=== PATIENT | female | born 1985 | race Hispanic/Latino ===

== ENCOUNTER 2017-10-04 17:08 | Day surgery (SDC) | payer OTHER ==
[2017-10-04 17:56] VITALS: BMI 48.0
--- NOTE | 2017-10-04 18:31 | PDOC.LDHP ---
Labor and Delivery H&P Chief complaint: decreased movement HPI: 31 y/o at 35w3d, patient of Dr. Urbano, presents with decreased movement today. Denies VB, LOF, ctx, or other complaints. ROS neg for HEENT, cv, pulm, gi, gu, neuro, psych, skin, musculoskeletal or constitutional symptoms other than mentioned above. OB History Details: 5 prior term SVDs Current complications: none Past Medical History: Morbid obesity Hypothyroidism Current medications: pre- vitamins, other (synthroid) Previous surgical history: other (bartholin's gland cyst removed this ) Allergies/Adverse Reactions: Allergies Allergy/AdvReac Type Severity Reaction Status Date / Time No Known Allergies Allergy Unverified 10/04/17 17:43 Social history: none - Physical Exam Vital signs reviewed and normal: yes General: NAD, resting Lungs: nonlabored breathing Abdomen: gravid Extremeties: no edema FHT: category 1 (120s, mod variability, + accels, no decels) Priddy contractions every: none - Assessment 31 y/o at 35w3d with reactive NST. Has felt movement since arrival. - Plan -: D/c home with precautions. Advised to keep all appointments and continue daily activity counts. Dr. Pennington aware of patient visit.
== END 2017-10-04 18:35 | disposition home or self-care (01) ==
LOC: L&D/OP 17:08
PROVIDERS: ATTEND Obstetrics & Gynecology
DX: O36.8130 Decreased fetal movements, third trimester, not applicable or unspecified (principal); O99.283 Endocrine, nutritional and metabolic diseases complicating pregnancy, third trimester; E03.9 Hypothyroidism, unspecified; Z79.899 Other long term (current) drug therapy; O99.213 Obesity complicating pregnancy, third trimester; E66.01 Morbid (severe) obesity due to excess calories; Z68.42 Body mass index [BMI] 45.0-49.9, adult; Z3A.35 35 weeks gestation of pregnancy

== ENCOUNTER 2017-10-22 12:00 | Inpatient (IN) | payer OTHER ==
[2017-10-22] MEDS ORDERED: Penicillin G Potassium 5 MILL.UNITS VIAL ONE (12:33)
[2017-10-22] MEDS ORDERED: Penicillin G Potassium 5 MILL.UNITS in Sodium Chloride 0.9% 100 ML IVPB SCH (12:45)
[2017-10-22 12:58] VITALS: BMI 48.0
[2017-10-22] MEDS ORDERED: Lidocaine 1% (PF) 30 ML VIAL SC PRN (16:45)
[2017-10-22] MEDS ORDERED: LR / Pitocin 40 units/1000 ml 40 UNITS/1,000 ML BAG IV SCH (16:45)
[2017-10-22] MEDS: Penicillin G 2.5 MILL.units 2.5 MILL.UNITS in Premix Bag 1 BAG IVPB SCH ×3 (16:45→20:59)
[2017-10-22] MEDS ORDERED: LR 500 ML/Oxytocin 10 units 500 ML IV SCH ×2 (16:45)
[2017-10-22] MEDS ORDERED: Fentanyl 4 mcg/Marc 0.1% Cadd 100 ML ONE (17:19)
[2017-10-22 17:29] LABS: #Eosinphils 0.1 thou/uL (0.0-0.7); #Lymphocytes 1.3 thou/uL (1.20-3.40); #Monocytes 0.3 thou/uL (0.11-0.59); %Basophils 0.2 % (0.0-1.0); %Eosinophils 1.7 % (0.0-10.0); %Lymphocytes 18.9 % (21.0-51.0); %Monocytes 4.7 % (0.0-10.0); Hematocrit 36.5 % (36.0-47.0); Mean Platelet Volume 8.8 fL (7.4-10.4); Red Blood Cell (RBC) Count 4.04 mill/uL (4.20-5.40); White Blood Cell (WBC) Count 6.7 thou/uL (4.8-10.8)
[2017-10-22] MEDS ORDERED: Naloxone HCl 0.4 mg/ml Vial IVP PRN ×2 (19:09)
[2017-10-22] MEDS ORDERED: ePHEDrine/0.9% NaCl/PF SYRINGE 50 mg/10 ml SLOW IVP PRN (19:09)
[2017-10-22] MEDS ORDERED: Ondansetron HCl/PF 4 MG/2 ML Vial IVP PRN ×2 (19:09→23:30)
[2017-10-22] MEDS ORDERED: Eucerin (Mineral Oil/Petrolatum,White) 30 gm Jar TOP PRN (19:09)
[2017-10-22] MEDS ORDERED: Acetaminophen 325 MG TAB PO PRN (19:09)
[2017-10-22] MEDS ORDERED: diphenhydrAMINE 50 MG/ML VIAL IVP PRN (19:09)
[2017-10-22] MEDS ORDERED: Lactated Ringer's 500 ML IV PRN (19:09)
[2017-10-22] MEDS ORDERED: Promethazine HCl 25 MG/ML VIAL IM PRN ×2 (19:09→23:30)
[2017-10-22] MEDS ORDERED: Fentanyl 4mcg/Marcaine 0.1% Cassette 100 ML EPIDURAL SCH (19:15)
[2017-10-22] MEDS ORDERED: Communication Order-Pharmacy FS SCH (19:15)
[2017-10-22] MEDS ORDERED: Misoprostol 200 MCG TAB ONE (22:32)
[2017-10-22] MEDS ORDERED: Bisacodyl 10 MG SUPP PR PRN (23:24)
[2017-10-22] MEDS ORDERED: Milk Of Magnesia 30 ML UDCUP PO PRN (23:24)
[2017-10-22] MEDS ORDERED: Preparation H Ointment 28 GM TUBE PR PRN (23:30)
[2017-10-22] MEDS ORDERED: LR / Pitocin 40 units/1000 ml 1,000 ML IV SCH (23:30)
[2017-10-22] MEDS ORDERED: Benzocaine/Menthol 20-0.5% 60 ML CAN TOP PRN (23:30)
[2017-10-22] MEDS ORDERED: Lanolin Ointment 7 GM TUBE TOP PRN (23:30)
[2017-10-22] MEDS ORDERED: HYDROcodone/Acetaminophen 5/325 mg Tablet PO PRN ×2 (23:30)
[2017-10-22] MEDS ORDERED: diphenhydrAMINE 25 MG CAP PO PRN (23:30)
[2017-10-22] MEDS ORDERED: Adacel (T-DAP) 0.5 ML VIAL IM ONE (23:58)
--- NOTE | 2017-10-23 02:28 | OP ---
DATE OF PROCEDURE: 10/22/2017 PREOPERATIVE DIAGNOSES: 1. A 31-year-old G10, P 5-0-4-5, with history of 5 vaginal deliveries at term in active labor. 2. GBS positive. 3. Grand multiparity. 4. History of persistent upper respiratory infection during . POSTOPERATIVE DIAGNOSES: 1. A 31-year-old G10, P 5-0-4-5, with history of 5 vaginal deliveries at term in active labor. 2. GBS positive. 3. Grand multiparity. 4. History of persistent upper respiratory infection during . 5. Liveborn female infant with Apgars of 9 and 9 at 1 and 5 minutes respectively. CLINICAL HISTORY: This patient is a 31-year-old female, who called the office complaining t his morning of regular contractions that were painful and lots of pressure. She had been compliant w ith her care and seen throughout the entire . The only complication for the was t he history of tobacco use, persisting URI in the second and third trimester, as well as GBS positive status. The patient was evaluated and noted to be 4 cm dilated, 70% effaced, and -3 station. The pa tient previously had 3 cm, 2 days prior. Given her history of grand multiparity and GBS positive sta tus, the patient was sent over to the hospital for admission for active labor/post-potential augmenta tion of the labor. She was admitted and penicillin was started per protocol for group B strep prophy laxis and she was able to get her second dose in before an amniotomy was performed. The amniotomy no ivett clear fluid. The patient did progress, but she requested her epidural for maternal analgesia. O nce the epidural was placed, she was checked again and was noted to be the same as far as cervical di lation. A Pitocin was then started per protocol and the patient progressed to complete cervical dila tion plus +2 station. DETAILS OF PROCEDURE: With good maternal effort, the patient was able to push and bring the ve rtex to a position within the first contraction. The patient also delivered off of the firs t contraction, the head presented in the position and the anterior shoulder followed by the posterior shoulder while the remainder of the 's body was delivered spontaneously. The cord was doubly clamped and cut and the infant cried a vigorous cry. She was placed on the maternal abdomen and the nurse in attendance. Simulated and cleansed the baby of the amniotic fluid and vernix. The placenta was then delivered spontaneously intact with a 3-vessel cord and exploration of the vagina introitus and cervix noted no tears. The uterus was then massaged and noted at the fundus to be firm. Pitoci n was infused and the patient was put into the recovery position with the Mayes out. There were no o ther issues surrounding this delivery. Cord blood was obtained and sent off. The patient was able t o recover with her infant. Again, the was a liveborn female. Weight was not available at the time of this dictation. The Apgars were 9 and 9. SURGEON: Sadia Urbano M.D. ESTIMATED BLOOD LOSS: 200 mL. ANESTHESIA: Epidural. All needle, sponge, lap, and instrument counts were correct x2 at the end of the procedure.
[2017-10-23] MEDS: Lactated Ringer's 1,000 ML IV SCH ×3 (02:47→14:18)
[2017-10-23] MEDS: Penicillin G 2.5 MILL.units 2.5 MILL.UNITS in Premix Bag 1 BAG IVPB SCH ×4 (02:48→14:19)
[2017-10-23] MEDS: Ibuprofen 800 MG TAB PO SCH ×3 (06:14→22:06)
[2017-10-23] MEDS: Ferrous Sulfate 325 MG TAB PO SCH ×2 (08:52→18:12)
[2017-10-23] MEDS: Prenatal Vitamin 1 TAB PO SCH (09:19)
[2017-10-23] MEDS: Docusate (Surfak) 240 MG CAP PO SCH ×2 (09:19→22:06)
[2017-10-23] MEDS ORDERED: Bupivacaine/Epinephrine 0.25% 30 ML VIAL ONE (15:44)
[2017-10-24] MEDS: Ibuprofen 800 MG TAB PO SCH ×2 (05:44→13:53)
[2017-10-24] MEDS: Docusate (Surfak) 240 MG CAP PO SCH (08:48)
[2017-10-24] MEDS: Ferrous Sulfate 325 MG TAB PO SCH ×2 (08:48→17:11)
[2017-10-24] MEDS: Prenatal Vitamin 1 TAB PO SCH (08:48)
[2017-10-24 08:52] VITALS: BP 110/56; TEMP 98
== END 2017-10-24 18:10 | disposition home or self-care (01) | DRG 775 ==
LOC: L&D 12:00 → 3SW 10-23 01:40
PROVIDERS: ADMIT Obstetrics & Gynecology; ATTEND Obstetrics & Gynecology
PROC: 10E0XZZ Delivery of Products of Conception, External Approach (ICD-10-PCS; principal; 2017-10-22)
PROC: 10907ZC Drainage of Amniotic Fluid, Therapeutic from Products of Conception, Via Natural or Artificial Opening (ICD-10-PCS; 2017-10-22)
DX: O99.824 Streptococcus B carrier state complicating childbirth (principal); Z37.0 Single live birth; Z3A.38 38 weeks gestation of pregnancy
CPT/HCPCS: 85025; 86762; 86780; 86850; 86900; 86901; 87340; 87389; J2210; J2540; J7050; J7120

== ENCOUNTER 2019-10-18 11:34 | Inpatient (IN) | payer OTHER ==
[2019-10-18 12:08] VITALS: BMI 54.9
[2019-10-18] MEDS ORDERED: Promethazine HCl 25 MG/ML VIAL IM PRN ×2 (12:47→18:45)
[2019-10-18] MEDS ORDERED: hydrALAZINE 20 MG/ML VIAL SLOW IVP PRN (12:47)
[2019-10-18] MEDS ORDERED: Butorphanol Tartrate 1 MG/ML VIAL SLOW IVP PRN (12:47)
[2019-10-18] MEDS ORDERED: Ibuprofen 800 MG TAB PO PRN (12:47)
[2019-10-18] MEDS ORDERED: Ondansetron PF 4 MG/2 ML Vial IVP PRN ×2 (12:47→18:45)
[2019-10-18] MEDS ORDERED: Docusate 100 MG CAP PO PRN (12:47)
[2019-10-18] MEDS ORDERED: Lidocaine 1% (PF) 30 ML VIAL SC PRN (12:47)
[2019-10-18] MEDS ORDERED: NS / Oxytocin 40 units/1000ml 1,000 ML IV PRN (12:47)
[2019-10-18] MEDS ORDERED: HYDROcodone/Acetaminophen 5/325 mg Tablet PO PRN ×2 (12:47)
[2019-10-18 13:26] LABS: Mean Corpuscular HGB CONC 33.9 g/dL (32.0-36.0); Mean Corpuscular Hemoglobin 28.5 pg (27.0-31.0); Mean Corpuscular Volume 84.1 fL (78.0-98.0); Mean Platelet Volume 8.8 fL (7.4-10.4); Platelet Count 249 thou/uL (130-400); RBC Distribution Width 13.1 % (11.5-14.5); Red Blood Cell (RBC) Count 3.86 mill/uL (4.20-5.40); White Blood Cell (WBC) Count 8.3 thou/uL (4.8-10.8)
[2019-10-18 13:44] LABS: ALT (SGPT) 10 U/L (8-55); AST (SGOT) 12 U/L (5-34)
[2019-10-18 13:58] LABS: Syphilis Antibody Nonreactive (Nonreactive); Syphilis Antibody Index 0.04 S/CO (<1.00 Non-Reactive)
[2019-10-18 14:03] LABS: HBSAg Index 0.15 S/CO (0-0.99); Hep B Surf Ag Non-Reactive S/CO (NonReactive)
[2019-10-18] MEDS ORDERED: Bupivacaine 0.25% HCL 30 ML VIAL ONE (15:02)
[2019-10-18] MEDS ORDERED: Fentanyl 4 mcg/Bup 0.1% Cadd 100 ML ONE (17:42)
[2019-10-18] MEDS: Lactated Ringer's 1,000 ML IV SCH ×2 (18:15→22:30)
[2019-10-18] MEDS ORDERED: Lactated Ringer's 500 ML IV PRN (18:45)
[2019-10-18] MEDS ORDERED: Naloxone HCl 0.4 mg/ml Vial IVP PRN ×2 (18:45)
[2019-10-18] MEDS ORDERED: ePHEDrine/0.9% NaCl/PF SYRINGE 50 mg/10 ml SLOW IVP PRN (18:45)
[2019-10-18] MEDS ORDERED: Fentanyl 4 mcg/Bupivacaine 0.1% Cassette 100 ML EPIDURAL SCH (18:45)
[2019-10-18] MEDS ORDERED: Communication Order-Pharmacy FS SCH (18:45)
[2019-10-18] MEDS ORDERED: Acetaminophen 325 MG TAB PO PRN (18:45)
[2019-10-18] MEDS ORDERED: diphenhydrAMINE 50 MG/ML VIAL IVP PRN (18:45)
[2019-10-18] MEDS ORDERED: NS w/ Oxytocin 10 units 500 ML IVPB SCH (21:00)
[2019-10-19] MEDS ORDERED: Fentanyl 4 mcg/Bup 0.1% Cadd 100 ML ONE (01:21)
[2019-10-19] MEDS ORDERED: Carboprost 250 MCG/ML AMP ONE (02:02)
[2019-10-19] MEDS ORDERED: Misoprostol 200 MCG TAB ONE (02:02)
[2019-10-19] MEDS ORDERED: Methylergonovine 0.2 MG/ML VIAL ONE (02:03)
[2019-10-19] MEDS ORDERED: Preparation H Ointment 28 GM TUBE PR PRN (03:36)
[2019-10-19] MEDS ORDERED: Lanolin Ointment 7 GM TUBE TOP PRN (03:36)
[2019-10-19] MEDS ORDERED: HYDROcodone/Acetaminophen 5/325 mg Tablet PO PRN ×2 (03:36)
[2019-10-19] MEDS ORDERED: hydrALAZINE 20 MG/ML VIAL SLOW IVP PRN (03:36)
[2019-10-19] MEDS ORDERED: Milk Of Magnesia 30 ML UDCUP PO PRN (03:36)
[2019-10-19] MEDS ORDERED: Ondansetron PF 4 MG/2 ML Vial IVP PRN (03:36)
[2019-10-19] MEDS ORDERED: Bisacodyl 10 MG SUPP PR PRN (03:36)
[2019-10-19] MEDS ORDERED: Benzocaine-Menthol 82.5 ML CAN TOP PRN (03:36)
[2019-10-19] MEDS ORDERED: NS / Oxytocin 40 units/1000ml 1,000 ML IV SCH (03:45)
[2019-10-19] MEDS: Ibuprofen 800 MG TAB PO SCH ×3 (05:50→20:52)
[2019-10-19] MEDS: Lactated Ringer's 1,000 ML IV SCH ×3 (06:19→20:53)
--- NOTE | 2019-10-19 07:26 | DN ---
DATE OF PROCEDURE: 10/19/2019 PREOPERATIVE DIAGNOSES: 1. A 33-year-old female, G11, P6-0-4-6, at 37 and 3, admitted on 10/18 for labor with advanced cervical dilation to 4 cm, 70%, and -2 station with feeling pressure. 2. Grand multiparity. 3. History of precipitous delivery x2. 4. Group B Streptococcus negative. 5. Desires permanent sterilization, however, arrived at hospital different from designated hospital for procedure, will need a tubal in the interval time. 6. Proteinuria with 3+ in the office, however, no headache or vision changes or right upper quadrant pain with normal labs. 7. Sciatica pain in the bilateral hips. For the latter 3-4 months of . POSTOPERATIVE DIAGNOSIS: 1. A 33-year-old female, G11, P6-0-4-6, at 37 and 3, admitted on 10/18 for labor with advanced cervical dilation to 4 cm, 70%, and -2 station with feeling pressure. 2. Grand multiparity. 3. History of precipitous delivery x2. 4. Group B Streptococcus negative. 5. Desires permanent sterilization, however, arrived at hospital different from designated hospital for procedure, will need a tubal in the interval time. 6. Proteinuria with 3+ in the office, however, no headache or vision changes or right upper quadrant pain with normal labs. 7. Sciatica pain in the bilateral hips. For the latter 3-4 months of . 8. Amniotomy with clear fluid and internal monitoring. 9. Live born female with Apgars of 9 and 9 at 1 and 5 minutes respectively. CLINICAL HISTORY: This patient is a 33-year-old female, G11, P6-0-4-6, who presented to the office at 37 and 3 for her routine OB appointment. She was concerned about her pressure and had been complaining of sciatica for the several last months of the . The patient was checked and noted to be 4 cm, 70% effaced, and -3 station. She was previously 1.5 cm and 50% effaced, and -3 the week prior. Given the patient's body habitus of a BMI of greater than 54, it was difficult to palpate contractions given the patient's history as well she was sent to [facility]; however, the patient arrived at [facility] for direct admission. She was placed on the monitor and was noted to have episodes of regular contractions that were able to be captured on the monitoring and then episodes monitoring was difficult. She was watched for several hours given her gestation and in the evening upon recheck, she was noted to be 5 cm, 70% effaced and -2 station. At that point in time, an amniotomy was performed with clear fluid and FSE and IUPC were placed. The IUPC original was not tracing appropriately, so a 2nd IUPC was placed and showed inadequate contractions and intermittent adequate contractions. The patient was given 2-3 hours to establish a contraction pattern. Pitocin was then started with resultant transition from 5 cm to complete in a matter of less than 6 hours. The patient did request an epidural for maternal analgesia shortly after amniotomy and it was obtained with adequate control. DETAILS OF THE PROCEDURE: With good maternal effort, the patient was able to push with the 1st contraction and delivered the head in the DANETTE position. There was no nuchal cord, however, it was suspected given her tracing in the latter portion of her labor with variables with contractions. The anterior shoulder followed by the posterior shoulder followed by the remainder infant's body was delivered. The cord was doubly clamped and cut after a delayed cord clamping was performed. The was vigorous and had good coloring. The cord was cut by the father of the baby, the , and the was placed on the maternal abdomen for continued care and stimulation. Cord blood was obtained. The placenta was then delivered spontaneously intact with a 3-vessel cord and was discarded. Exploration of the introitus, vagina, and cervix noted no lacerations. The patient was able to recover on Labor and Delivery in satisfactory condition after being cleansed and de-draped. Again, the baby was a live born female with Apgars of 9 and 9 at 1 and 5 minutes respectively. ESTIMATED BLOOD LOSS: 80. QUANTITATIVE BLOOD LOSS: 105. ANESTHESIA: Epidural. SPECIAL MEDICATIONS: None. There were no other issues surrounding this delivery. The uterus was firm and all needle, sponge, lap, and instrument counts were correct x2 at the end of the procedure. Job ID: [id number]
[2019-10-19] MEDS ORDERED: Adacel (T-DAP) 0.5 ML SYRINGE IM ONE (09:00)
[2019-10-19] MEDS: Prenatal Vitamin 1 TAB PO SCH (09:32)
[2019-10-19] MEDS: Docusate Calcium (SURFAK) 240 MG CAP PO SCH ×2 (09:32→20:53)
[2019-10-20 00:44] VITALS: BP 131/77; TEMP 98.2
[2019-10-20] MEDS: Ibuprofen 800 MG TAB PO SCH (12:51)
[2019-10-20] MEDS: Lactated Ringer's 1,000 ML IV SCH (12:51)
[2019-10-20] MEDS: Docusate Calcium (SURFAK) 240 MG CAP PO SCH (12:52)
[2019-10-20] MEDS: Prenatal Vitamin 1 TAB PO SCH (12:52)
== END 2019-10-20 13:47 | disposition home or self-care (01) | DRG 807 ==
LOC: L&D/OP 11:34 → L&D 14:50 → 3SW 10-19 05:32
PROVIDERS: ADMIT Obstetrics & Gynecology; ATTEND Obstetrics & Gynecology
PROC: 10E0XZZ Delivery of Products of Conception, External Approach (ICD-10-PCS; principal; 2019-10-19)
PROC: 10907ZC Drainage of Amniotic Fluid, Therapeutic from Products of Conception, Via Natural or Artificial Opening (ICD-10-PCS; 2019-10-19)
DX: O99.89 Other specified diseases and conditions complicating pregnancy, childbirth and the puerperium (principal); Z37.0 Single live birth; O99.284 Endocrine, nutritional and metabolic diseases complicating childbirth; E03.9 Hypothyroidism, unspecified; Z3A.37 37 weeks gestation of pregnancy; M54.32 Sciatica, left side; M54.31 Sciatica, right side; O12.14 Gestational proteinuria, complicating childbirth
CPT/HCPCS: 36415; 51702; 84450; 84460; 85027; 86780; 86850; 86900; 86901; 87340; 99285; J2210; J2590; J3490; S0020

== ENCOUNTER 2019-12-27 08:53 | Outpatient (CLI) | payer OTHER ==
--- NOTE | 2019-12-27 10:32 | ULT ---
ULTRASOUND ABDOMEN: HISTORY: Left upper quadrant abdominal pain FINDINGS: The liver demonstrates increased echogenicity consistent with fatty infiltration. There is a focal ar ea of decreased echogenicity in the right lobe close to the gallbladder measuring 1.8 x 1.3 x 2 cm. The possibility of this representing focal sparing cannot be excluded. The spleen is borderline measuring 12.8 cm in length. The gallbladder, pancreas, kidneys and visualized portions of the aorta and IVC appear normal. The c ommon duct measures 6mm in diameter. No free fluid is seen. IMPRESSION: 1. Fatty liver. 2. Focal hypoechoic lesion in the liver. Fatty sparing versus neoplasm. MRI with and without IV contr ast is recommended.. 3. Borderline splenomegaly
== END 2019-12-27 08:54 | disposition home or self-care (01) ==
LOC: BICULT 08:53
PROVIDERS: ATTEND Physician Assistant
DX: R10.12 Left upper quadrant pain (principal); M54.6 Pain in thoracic spine; K76.0 Fatty (change of) liver, not elsewhere classified; K76.9 Liver disease, unspecified
CPT/HCPCS: 93975

== ENCOUNTER 2020-01-03 15:14 | Emergency (ER) | payer OTHER ==
[2020-01-03 15:56] LABS: #Eosinphils 0.2 thou/uL (0.0-0.7); #Lymphocytes 2.3 thou/uL (1.20-3.40); #Monocytes 0.5 thou/uL (0.11-0.59); #Neutrophils 5.2 thou/uL (1.40-6.50); %Basophils 0.3 % (0.0-1.0); %Eosinophils 2.4 % (0.0-10.0); %Lymphocytes 27.9 % (21.0-51.0); %Monocytes 5.8 % (0.0-10.0); %Neutrophils 63.5 % (42.0-75.0); Hemoglobin 13.5 g/dL (12.0-16.0); Mean Corpuscular HGB CONC 34.1 g/dL (32.0-36.0); Mean Corpuscular Hemoglobin 28.6 pg (27.0-31.0); Mean Corpuscular Volume 83.8 fL (78.0-98.0); Mean Platelet Volume 8.7 fL (7.4-10.4); Platelet Count 313 thou/uL (130-400); RBC Distribution Width 14.1 % (11.5-14.5); Red Blood Cell (RBC) Count 4.71 mill/uL (4.20-5.40); White Blood Cell (WBC) Count 8.2 thou/uL (4.8-10.8)
[2020-01-03 16:19] LABS: ALT (SGPT) 33 U/L (8-55); AST (SGOT) 25 U/L (5-34); Albumin 4.6 g/dL (3.5-5.0); Alkaline Phosphatase 96 U/L (40-110); Anion Gap 14 mmol/L (10-20); BUN (Urea Nitrogen) 14 mg/dL (7.0-18.7); Bilirubin, Total 0.8 mg/dL (0.2-1.2); Calc. Creatinine Clearance 0 mL/min (70-130); Calcium 9.4 mg/dL (7.8-10.44); Carbon Dioxide 27 mmol/L (22-29); Chloride 103 mmol/L (98-107); Estimated GFR-MDRD 90; Globulin 3.7 g/dL (2.4-3.5); Glucose 115 mg/dL (70-105); Protein, Total 8.3 g/dL (6.0-8.3); Sodium 140 mmol/L (136-145)
[2020-01-03] MEDS ORDERED: Lidocaine Viscous Sol 2% 15 ml UD Cup ONE (16:31)
[2020-01-03] MEDS ORDERED: Lidocaine 4% Topical Sol 50 ML BOT ONE (16:31)
[2020-01-03] MEDS ORDERED: predniSONE 20 MG TAB ONE (17:29)
== END 2020-01-03 17:27 | disposition home or self-care (01) ==
LOC: ERS 15:14
DX: J02.9 Acute pharyngitis, unspecified (principal); J45.909 Unspecified asthma, uncomplicated; E03.9 Hypothyroidism, unspecified
CPT/HCPCS: 31505; 36415; 80053; 85025; 93005; J7512